=== PATIENT | male | born 1990 | race Caucasian/White ===

== ENCOUNTER 2018-12-09 03:50 | Emergency (ER) | payer SELFPAY ==
--- NOTE | 2018-12-09 04:16 | ER Document Report ---
ED General - General Chief Complaint: Breathing Difficulty Stated Complaint: ALTERED MENTAL STATUS Time Seen by Provider: 12/09/18 04:07 Notes: 28-year-old male to the emergency department chief complaint of altered mental status. Patient reportedly stopped breathing. Was doing some drugs but he says it was weed. Is a heavy abuser of marijuana but denies shooting heroin or snorting heroin. States that he has done it in the past and did not like it. states that he turned purple. His eyes were pinpoint. EMS was called. Patient was arousable so Narcan was not given. Patient presents completely alert and with it at this time and in no acute distress. - HPI Onset: Just prior to arrival Onset/Duration: Sudden Severity: Moderate Associated symptoms: None Past Medical History - General Information source: Patient - Social History Smoking Status: Current Every Day Smoker Frequency of alcohol use: Occasional Drug Abuse: Marijuana Lives with: Spouse/Significant other Family History: Reviewed & Not Pertinent - Medical History Medical History: Negative Review of Systems - Review of Systems Notes: Constitutional: denies: Chills, Diaphoresis, Fever, Malaise, Weakness EENT: denies: Eye discharge, Blurred vision, Tearing, Double vision, Nose congestion, Nose discharge, Throat swelling, Mouth pain Cardiovascular: denies: Palpitations, Heart racing, Orthopnea, Dyspnea, Chest pain Respiratory: denies: Cough, Hurts to breathe, Wheezing, Shortness of breath Gastrointestinal: denies: Abdominal pain, Diarrhea, Nausea, Vomiting, Black stools, bright red blood in stool Genitourinary: denies: Burning, Dysuria, Discharge, Frequency, Flank pain, Hematuria Musculoskeletal: denies: Joint pain, Joint swelling, Muscle pain, Muscle stiffness, back pain Hematologic/Lymphatic: denies: Anemia, Easy bleeding, Easy bruising, Blood clots Neurological/Psychological: denies: Confusion, Dementia, Depression, Loss of consciousness Skin: No lesions, no masses, no skin breakdown, no abscesses Physical Exam - Vital signs Vitals: Resp Pulse Ox 18 97 12/09/18 04:00 12/09/18 04:00 Interpretation: Normal - General General appearance: Appears well, Alert - HEENT Head: Normocephalic, Atraumatic Eyes: Normal Pupils: PERRL, Pinpoint - Respiratory Respiratory status: No respiratory distress Chest status: Nontender Breath sounds: Normal Chest palpation: Normal - Cardiovascular Rhythm: Regular Heart sounds: Normal auscultation Murmur: No - Abdominal Inspection: Normal Distension: No distension Bowel sounds: Normal Tenderness: Nontender Organomegaly: No organomegaly - Back Back: Normal, Nontender - Extremities General upper extremity: Normal inspection, Nontender, Normal color, Normal ROM, Normal temperature General lower extremity: Normal inspection, Nontender, Normal color, Normal ROM, Normal temperature, Normal weight bearing. No: Rk's sign - Neurological Neuro grossly intact: Yes Cognition: Normal Orientation: AAOx4 [place] Coma Scale Eye Opening: Spontaneous [place] Coma Scale Verbal: Oriented [place] Coma Scale Motor: Obeys Commands [place] Coma Scale Total: 15 Speech: Normal Motor strength normal: LUE, RUE, LLE, RLE Sensory: Normal - Psychological Associated symptoms: Normal affect, Normal mood - Skin Skin Temperature: Warm Skin Moisture: Dry Skin Color: Normal Course - Re-evaluation Re-evalutation: 12/09/18 04:15 And in no acute distress. Does have some pinpoint pupils but is talking and appropriate. I am going to get a chest x-ray just to make sure the patient does not have any signs of ARDS or edema. We will get an Accu-Chek and observe 12/09/18 05:52 Chest X-Ray 12/09/18 04:13 IMPRESSION: 1. No acute pulmonary process identified. Laboratory 12/09/18 04:32 POC Glucose 147 H Patient has been observed here for quite some time. Has had no more somnolent episodes. Baseline mental status. Has a family member who can accompany him home. No Narcan was required. Blood sugars within normal limits. Chest x-ray is unremarkable. Will DC at this time in stable condition. 12/09/18 05:53 - Vital Signs Vital signs: Temp Pulse Resp BP Pulse Ox 12 133/98 H 94 12/09/18 04:55 12/09/18 04:55 12/09/18 04:55 - Laboratory Laboratory results interpreted by me: 12/09/18 04:32 POC Glucose 147 H - EKG Interpretation by Me EKG shows normal: [place], Intervals, QRS Complexes, ST-T Waves Rate: Tachycardia Discharge - Discharge Clinical Impression: Narcotic overdose Qualifiers: Encounter type: initial encounter Injury intent: accidental or unintentional Qualified Code(s): T40.601A - Poisoning by unspecified narcotics, accidental (unintentional), initial encounter Condition: Good Disposition: HOME, SELF-CARE Additional Instructions: Based on your presentation today it is highly possible that you had a narcotic overdose. Illicit drugs are often times treated (laced) with substances such as heroin and fentanyl. This can cause respiratory depression and can lead to . Please dispose of any of these illicit drugs for which you were using today. In the event that you need help with your substance abuse problem we can provide resources for you. Do not use any alcohol today. Do not take any ajrr-xys-oftgnea medications which can cause sleepiness such as Benadryl or Unisom. Please avoid any marijuana and other controlled substances.
--- NOTE | 2018-12-09 04:57 | RADIOLOGY REPORT (SQ) ---
EXAM DESCRIPTION: XR CHEST 1 VIEW COMPLETED DATE/TME: 12/09/2018 04:13 CLINICAL HISTORY: sob COMPARISON: None. FINDINGS: Single frontal view of the chest. Cardiomediastinal silhouette: Normal size and contour. Lungs: No consolidation, pneumothorax, or pleural effusion. Leads overlie the chest. Bones: No acute osseous abnormality. Upper abdomen: No abnormality identified. IMPRESSION: 1. No acute pulmonary process identified.
[2018-12-09 06:19] VITALS: BP 104/74
[2018-12-09 06:46] LABS: URINE BARBITURATES SCREEN NEGATIVE; URINE BENZODIAZEPINES SCREEN NEGATIVE; URINE COCAINE SCREEN NEGATIVE; URINE METHADONE SCREEN NEGATIVE; URINE PHENCYCLIDINE SCREEN NEGATIVE
[2018-12-09 06:50] LABS: URINE MARIJUANA (THC) SCREEN UNCONFIRMED POSITIVE
== END 2018-12-09 06:20 | disposition home or self-care (01) ==
LOC: ER 03:50
DX: T40.601A Poisoning by unspecified narcotics, accidental (unintentional), initial encounter (principal); F12.10 Cannabis abuse, uncomplicated; F17.200 Nicotine dependence, unspecified, uncomplicated; R00.0 Tachycardia, unspecified
CPT/HCPCS: 71045; 80307; 82962; 99285